=== PATIENT | male | born 1995 | race Two or more races ===

== ENCOUNTER 2021-06-15 14:27 | Emergency (ER) | payer MEDICAID ==
[~2021-06-15] VITALS: Ht 180.3 cm; Wt 75.0 kg
[2021-06-15 14:39] VITALS: BP 123/75
== END 2021-06-15 15:44 | disposition home or self-care (01) ==
LOC: ED 15:38
DX: B34.9 Viral infection, unspecified (principal); Z20.822 Contact with and (suspected) exposure to COVID-19; E78.00 Pure hypercholesterolemia, unspecified
CPT/HCPCS: 99283; U0003; U0005